=== PATIENT | female | born 1950 | race Caucasian/White ===

== ENCOUNTER → 2017-01-29 | Outpatient (CLI) | payer MEDICARE ==
[~2017-01-29] VITALS: Ht 160 cm; Wt 65.1 kg
[~2017-01-29] MED LIST: EPA FISH OIL1 SGL PO; MULTI VITAMINS1 TAB PO; PROBIOTIC FORMU1 CAP PO; THE MEDICINE S200 M2 PO; VITAMIN D31000 IU PO
[2017-01-29 09:28] VITALS: BP 129/83; PULSE 73
[2017-01-29 10:54] VITALS: BP 152/90; PULSE 74
[2017-01-29 11:10] VITALS: BP 137/85; PULSE 69
== END ==
LOC: COL.RAD 08:59
DX: E04.1 Nontoxic single thyroid nodule (principal)
CPT/HCPCS: 13756

== ENCOUNTER → 2021-06-28 | Day surgery (SDC) | payer MEDICARE ==
[~2021-06-28] VITALS: Ht 157.5 cm; Wt 57.1 kg
[~2021-06-28] MED LIST changes: +OMNICEF 300MG300 MG PO; +SEROQUEL50 MG PO
--- NOTE | 2021-06-28 13:15 | NUR ---
Patient was COVID swabbed using PPE. Swab was send to the lab.
[2021-06-28 13:32] VITALS: BP 117/66; PULSE 81; TEMP 98.6
[2021-06-28 16:00] VITALS: BP 100/58; PULSE 74; TEMP 98.6
--- NOTE | 2021-06-28 16:00 | NUR ---
Pt returned to bay 4 via cart. Able to ambulate with SBA to recliner in bay. Spouse present in room. Pt given warm blanket. Also given applesause and grape juice per request. VSS-see flowsheet. Denies other needs or concerns at this time. Call light remains in reach.
[2021-06-28 16:15] VITALS: BP 102/77; PULSE 74
[2021-06-28 16:30] VITALS: BP 108/87; PULSE 78
--- NOTE | 2021-06-28 17:15 | NUR ---
1630- Pt taking food and drink well. No complications noted. Discharge instructions given to pt. All questions answered to pt and satisfaction. Handed to pt are a thank you card and discharge information. 1715- Pt transferred out of the hospital via wheelchair, to private vehicle driven by .
== END ==
LOC: SDCO 12:31
DX: D12.5 Benign neoplasm of sigmoid colon (principal); K31.89 Other diseases of stomach and duodenum; K29.80 Duodenitis without bleeding; K29.70 Gastritis, unspecified, without bleeding; D64.9 Anemia, unspecified; Z20.822 Contact with and (suspected) exposure to COVID-19; F17.210 Nicotine dependence, cigarettes, uncomplicated; J44.9 Chronic obstructive pulmonary disease, unspecified; Z79.899 Other long term (current) drug therapy; Z87.11 Personal history of peptic ulcer disease
CPT/HCPCS: J2704; J7120

== ENCOUNTER 2021-07-03 14:04 | Emergency (ER) | payer MEDICARE ==
[~2021-07-03] VITALS: Ht 157.5 cm; Wt 54.5 kg
[~2021-07-03 14:04] MED LIST changes: -OMNICEF 300MG300 MG PO
[2021-07-03 14:56] LABS: COLLECTION METHOD CLEAN CATCH
[2021-07-03 15:09] LABS: MUCOUS Present /lpf; PH 5 (5-8); SQUAMOUS EPITHELIAL None Seen /hpf; URINE APPEARANCE Cloudy; URINE BACTERIA Rare /hpf; URINE BILIRUBIN Negative (NEGATIVE); URINE BLOOD Negative (NEGATIVE); URINE COLOR Amber; URINE GLUCOSE Negative (NEGATIVE); URINE KETONE Trace (NEGATIVE); URINE LEUKOCYTE ESTERASE Negative (NEGATIVE); URINE NITRATE Positive (NEGATIVE); URINE PROTEIN(semi-quant) 1+ (NEGATIVE); URINE RBC 0-2 /hpf; URINE UROBILINOGEN Negative (NEGATIVE)
[2021-07-03 15:47] LABS: BASO # 0.1 K/mm3 (0.0-0.2); BASO % 0.5 % (0.0-2.0); EOS # 0.1 K/mm3 (0.0-0.7); EOS % 0.6 % (0-4.0); GRAN # 11.2 K/mm3 (1.4-6.5); GRAN % 77.5 % (42.2-75.2); HEMATOCRIT 39.6 % (37.0-47.0); HEMOGLOBIN 13.3 g/dl (12.5-16.0); LYMPH # 2.1 K/mm3 (1.2-3.4); LYMPH % 14.8 % (20.0-51.0); MEAN CELL VOLUME 92 fl (80.0-100.0); MEAN CORPUSCULAR HEMOGLOBIN 31 pg (27.0-31.0); MEAN CORPUSCULAR HGB CONC 34 g/dl (33.0-37.0); MONO # 0.9 K/mm3 (0.1-0.6); MONO % 6.1 % (1.7-9.3); PLATELET COUNT 186 K/mm3 (130-400); RED BLOOD COUNT 4.32 M/mm3 (4.10-5.30); REDCELL DISTRIBUTION WIDTH-CV 14.1 % (11.5-14.5)
[2021-07-03 16:02] LABS: ALBUMIN 3.2 gm/dL (3.4-4.8); BILIRUBIN,TOTAL 0.6 mg/dL (0.2-1.2); CALCIUM 9.2 mg/dL (8.4-10.2); CREATININE, serum 0.66 mg/dL (0.57-1.11); POTASSIUM 3.6 mmol/L (3.5-4.5); TOTAL PROTEIN 5.7 gm/dL (6.2-8.1)
[2021-07-03] MEDS ORDERED: OMNICEF 300MG300 MG PO (16:11)
[2021-07-03 17:29] VITALS: BP 119/63; PULSE 70
== END 2021-07-03 17:31 | disposition home or self-care (01) ==
LOC: COL.ER 14:04
PROVIDERS: Family Medicine
DX: N39.0 Urinary tract infection, site not specified (principal); R55 Syncope and collapse; F03.90 Unspecified dementia, unspecified severity, without behavioral disturbance, psychotic disturbance, mood disturbance, and anxiety
CPT/HCPCS: J0696; J7030

== ENCOUNTER 2021-07-12 11:09 | Day surgery (SDC) | payer MEDICARE ==
[~2021-07-12] VITALS: Ht 157.5 cm; Wt 56.7 kg
[~2021-07-12 11:09] MED LIST changes: +OMNICEF 300MG300 MG PO
[2021-07-12 11:46] VITALS: PULSE 81; TEMP 98.3
[2021-07-12 11:58] VITALS: BP 102/72
[2021-07-12 12:50] VITALS: BP 94/59; PULSE 76; TEMP 97.6
--- NOTE | 2021-07-12 12:50 | NUR ---
1250- PATIENT BROUGHT BACK TO ENDO ROOM 5 VIA CART. AMBULATED TO CHAIR WITH ASSIT. PLACED ON MONITORS VITAL SIGNS STABLE. AT BEDSIDE TO DRIVE PATIENT HOME. IV INFUSING. REPORT RECIEVED FROM DENTON JENSEN. WARM BLANKET PROVIDED. DENIES PAIN OR NAUSEA. REQUESTS CRANBERRY JUICE AT THIS TIME. DR. CASTANEDA AT BEDSIDE TO SPEAK WITH PATIENT IN REGARDS TO PROCEDURE. PER MD PATIENT MAY EAT. REQUESTS BLUEBERRY MUFFIN. CALL WITT WITHIN REACH. WILL CONTINUE TO MONITOR. 1305- VITAL SIGNS STABLE. TOLERATING FOOD AND DRINK WITHOUT DIFFICULTY. WILL CONTINUE TO MONITOR. 1320- PATIENT STATES SHE FEELS READY TO BE DISCHARGED AT THIS TIME. VITAL SIGNS STABLE. 1330- IV REMOVED, INTACT. DISCHARGE INSTRUCTIONS REVIEWED WITH PATIENT AND . PATIENT TO GET DRESSED AT THIS TIME. 1340- [facility] TO DR[facility] PATIENT HOME. ALL BELONGINGS IN HAND. ALL SAFETY MAINTAINED.
[2021-07-12 13:05] VITALS: BP 102/78; PULSE 88
[2021-07-12 13:20] VITALS: BP 99/66; PULSE 72
== END 2021-07-12 13:40 | disposition home or self-care (01) ==
LOC: SDCO 11:09
DX: D12.5 Benign neoplasm of sigmoid colon (principal); K57.30 Diverticulosis of large intestine without perforation or abscess without bleeding; K92.1 Melena; R63.4 Abnormal weight loss; D64.9 Anemia, unspecified; K27.9 Peptic ulcer, site unspecified, unspecified as acute or chronic, without hemorrhage or perforation; E78.5 Hyperlipidemia, unspecified; J44.9 Chronic obstructive pulmonary disease, unspecified; K21.9 Gastro-esophageal reflux disease without esophagitis; F32.9 Major depressive disorder, single episode, unspecified; F20.9 Schizophrenia, unspecified; F03.90 Unspecified dementia, unspecified severity, without behavioral disturbance, psychotic disturbance, mood disturbance, and anxiety; Z79.899 Other long term (current) drug therapy
CPT/HCPCS: J2704; J7120

== ENCOUNTER 2021-07-22 16:06 | Emergency (ER) | payer MEDICARE ==
[~2021-07-22] VITALS: Ht 157.5 cm; Wt 54.5 kg
[2021-07-22 16:26] VITALS: TEMP 97.9
[2021-07-22 17:07] LABS: BASO # 0.1 K/mm3 (0.0-0.2); BASO % 0.9 % (0.0-2.0); EOS # 0.1 K/mm3 (0.0-0.7); EOS % 0.6 % (0-4.0); GRAN # 6.2 K/mm3 (1.4-6.5); GRAN % 60.5 % (42.2-75.2); HEMATOCRIT 43.8 % (37.0-47.0); HEMOGLOBIN 14.5 g/dl (12.5-16.0); LYMPH # 3.2 K/mm3 (1.2-3.4); LYMPH % 30.8 % (20.0-51.0); MEAN CELL VOLUME 91 fl (80.0-100.0); MEAN CORPUSCULAR HEMOGLOBIN 30 pg (27.0-31.0); MEAN CORPUSCULAR HGB CONC 33 g/dl (33.0-37.0); MEAN PLATELET VOLUME 10.9 fl (7.4-10.4); MONO # 0.7 K/mm3 (0.1-0.6); MONO % 6.8 % (1.7-9.3); PLATELET COUNT 273 K/mm3 (130-400); REDCELL DISTRIBUTION WIDTH-CV 14.4 % (11.5-14.5)
[2021-07-22 17:26] LABS: ALANINE AMINOTRANSFERASE 17 U/L (0-55); ALBUMIN 3.8 gm/dL (3.4-4.8); ALKALINE PHOSPHATASE 84 U/L (40-150); ANION GAP 13 mmol/L (7-16); AST,SGOT 18 U/L (5-34); BILIRUBIN,TOTAL 0.7 mg/dL (0.2-1.2); BLOOD UREA NITROGEN 19 mg/dL (10-20); CALCIUM 10.1 mg/dL (8.4-10.2); CARBON DIOXIDE 24 mmol/L (23-31); CHLORIDE 107 mmol/L (98-107); CREATININE, serum 0.77 mg/dL (0.57-1.11); GLUCOSE 104 mg/dL (70-99); POTASSIUM 3.9 mmol/L (3.5-4.5); SODIUM 144 mmol/L (136-145); TOTAL PROTEIN 7.1 gm/dL (6.2-8.1)
[2021-07-22 17:36] LABS: ACETAMINOPHEN < 1.0 ug/mL (10-30); ALCOHOL(ethanol),MEDICAL < 10 mg/dL (0-10); SALICYLATE < 5.0 mg/dL (15.0-30.0)
[2021-07-22 18:08] LABS: COLLECTION METHOD CATHETER
[2021-07-22 18:17] LABS: MUCOUS Present /lpf; PH 5 (5-8); URINE APPEARANCE Hazy; URINE BACTERIA Rare /hpf; URINE BILIRUBIN Negative (NEGATIVE); URINE BLOOD Negative (NEGATIVE); URINE COLOR Amber; URINE GLUCOSE Negative (NEGATIVE); URINE KETONE 1+ (NEGATIVE); URINE LEUKOCYTE ESTERASE 1+ (NEGATIVE); URINE NITRATE Negative (NEGATIVE); URINE PROTEIN(semi-quant) 2+ (NEGATIVE); URINE RBC 0-2 /hpf
[2021-07-22 18:35] LABS: TRICYCLIC ANTIDEPRESS URINE POSITIVE
--- NOTE | 2021-07-23 09:08 | NUR ---
Alexsandra Aragon, daughter in law [phone] contacted social media marketing manager and advised that patient's spouse, Iglesia, found a power of deputy attorney general last evening. Iglesia will bring this form to the hospital today. Worker spoke with Skye at [facility] and confirmed that patient has been declined by two inpatient psychiatric facilities and [facility] has sent referral to [facility]. Will await this referral. Worker spoke with Dr Soto's planning and analysis manager, Savi and advised of the above information. Worker will faxe Dr Soto and Benjamin the power of deputy attorney general once it is received. Worker collaborated with patient's nurse, Lisbet, regarding the above information.
--- NOTE | 2021-07-23 09:13 | NUR ---
Tolu with [employer] Services will be visiting with patient this date, according to Alexsandra Aragon, daughter in law.
--- NOTE | 2021-07-23 10:13 | NUR ---
recording studio set up worker met with patient's spouse that presents with patient's living will and durable power of claims attorney for health care. Spouse is aware that Benjamin is working on inpatient treatment at [facility] and that [facility] is a possible acceptance today. Spouse spoke of looking towards where he wishes patient to spend the rest of her life as he cannot care for her at home. Worker provided support and information on the medical power of claims attorney.
--- NOTE | 2021-07-23 10:52 | NUR ---
turf farm worker met with Parth brown, APS worker and spouse. Worker provided, Parth, a copy of patient's living will and durable power of claim attorney for health care.
--- NOTE | 2021-07-23 12:50 | NUR ---
[facility] accepts patient after the courts provide orders for involuntary placement.
[2021-07-24 05:20] VITALS: BP 115/45; PULSE 77
== END 2021-07-24 05:20 ==
LOC: COL.ER 16:06
PROVIDERS: Physician Assistant
DX: F03.91 Unspecified dementia, unspecified severity, with behavioral disturbance (principal); F20.9 Schizophrenia, unspecified; N39.0 Urinary tract infection, site not specified; Z79.899 Other long term (current) drug therapy
CPT/HCPCS: J3486